=== PATIENT | female | born 1955 | race Caucasian/White ===

== ENCOUNTER 2024-04-24 08:08 | Day surgery (SDC) | payer MEDICARE ==
[~2024-04-24] VITALS: Ht 167.6 cm; Wt 75.0 kg
[~2024-04-24 08:08] MED LIST: ATOR40TA75 PO; CLOP75TA2 PO; CO Q10CA PO; DORZ2SOL5; ECOT81TA5 PO; LEVO100T5 PO; LOSA100T5 PO; METO1TAB32 PO; PHENYLEPHRINE 10% OPHTH SOL 5ML OD PRN; POTA-151 PO; REFR0.5D8 OD; XALA0.007
[2024-04-24] MEDS ORDERED: MIDAZOLAM INJ 2MG/2ML VIAL As Ordered ONE (08:28)
[2024-04-24] MEDS ORDERED: fentaNYL 100 MCG/2 ML INJECTION As Ordered ONE (08:28)
[2024-04-24] MEDS: TROPICAMIDE 1% OPHTH SOLN 15ML OD SCH (09:08)
[2024-04-24] MEDS: PHENYLEPHRINE 2.5% OPHTH SOL 2ML OD SCH (09:08)
[2024-04-24] MEDS: ATROPINE SULFATE 1% OPHTH SOLN 2ML BTL OD SCH (09:09)
[2024-04-24] MEDS: LIDOCAINE 3.5 % 1ML OPHTH TOPICAL GEL OU ONE (09:09)
[2024-04-24] MEDS: OFLOXACIN 0.3 % (OCUFLOX) OPTH SOL 5ML OD ONE (09:09)
[2024-04-24] MEDS: BSS IRRIG/VANCO(10MG)/TOBRA(5MG)/EPINEPH(1:1000-0.5CC)500ML BAG-ORONLY As Ordered ONE (10:01)
[2024-04-24] MEDS: CEFUROXIME 1MG/0.1ML INTRACAMERAL INJ As Ordered ONE (10:01)
[2024-04-24] MEDS: LIDOCAINE 1% SDV 5ML VIAL As Ordered ONE (10:01)
[2024-04-24] MEDS: DUOVISC (0.50ML VISCOAT/0.85ML PROVISC) OPHTH KIT As Ordered ONE (10:02)
[2024-04-24 10:12] VITALS: BP 159/73; TEMP 97.1; O2SAT 97
== END 2024-04-24 10:39 | disposition home or self-care (01) ==
LOC: M SDC 08:08
PROVIDERS: ATTEND Ophthalmology
DX: H25.11 Age-related nuclear cataract, right eye (principal); H40.1110 Primary open-angle glaucoma, right eye, stage unspecified; I10 Essential (primary) hypertension; I25.2 Old myocardial infarction; E78.5 Hyperlipidemia, unspecified; Z98.61 Coronary angioplasty status; E03.9 Hypothyroidism, unspecified; Z79.02 Long term (current) use of antithrombotics/antiplatelets; Z79.899 Other long term (current) drug therapy
CPT/HCPCS: 66183; 66987; C1783; J0697; J2250; J3010; V2788